=== PATIENT | female | born 1955 | race Caucasian/White ===

== ENCOUNTER 2021-01-17 10:27 | Outpatient (CLI) | payer OTHER | END 2021-01-17 10:45 | disposition home or self-care (01) | LOC: SONOGRAMA 10:27 | PROVIDERS: ATTEND Urology | DX: N39.0 Urinary tract infection, site not specified (principal); N39.3 Stress incontinence (female) (male) | CPT/HCPCS: 51600; 74455; 76856; Q9958 ==